=== PATIENT | female | born 1960 | race Caucasian/White ===

== ENCOUNTER 2020-10-01 10:53 | Outpatient (CLI) | payer SELFPAY ==
[~2020-10-01] VITALS: Ht 154.9 cm; Wt 61.2 kg
[2020-10-01 10:46] VITALS: BP 181/77
[2020-10-01] MEDS ORDERED: EPINEPHrine INJECTION 1 MG/ML AMP IM PRN (11:15)
[2020-10-01] MEDS ORDERED: ACETAMINOPHEN 500 MG TAB (TYLENOL) PO PRN (11:15)
[2020-10-01] MEDS ORDERED: CASIRIVIMAB/IMDEVIMAB 1,200 MG in NS (IVPB) 250 ML IV ONE (11:15)
[2020-10-01] MEDS ORDERED: ONDANSETRON 4 MG/2 ML (SDV) Z0FRAN IV PRN (11:15)
[2020-10-01] MEDS ORDERED: diphenhydrAMINE 50 MG/ML INJ (BENADRYL) IV PRN (11:15)
[2020-10-01 12:27] VITALS: BP 166/67
== END 2020-10-01 12:27 | disposition home or self-care (01) ==
LOC: INFUSION 10:53
PROVIDERS: ATTEND Nurse Practitioner Family
DX: Z23 Encounter for immunization (principal); U07.1 COVID-19

== ENCOUNTER 2022-10-25 20:42 | Observation (INO) | payer OTHER ==
[~2022-10-25] VITALS: Ht 152.4 cm; Wt 56.7 kg
[2022-10-26] VITALS (8 sets, daily range): BP systolic 121–151; BP diastolic 69–83
[2022-10-26] MEDS ORDERED: ONDANSETRON 4 MG ORAL DISSOLVE TABLET PO PRN (00:15)
[2022-10-26] MEDS ORDERED: diphenhydrAMINE 25 MG TABLET PO PRN (00:15)
[2022-10-26] MEDS ORDERED: BISACODYL 10 MG SUPPOSITORY PR PRN (00:15)
[2022-10-26] MEDS ORDERED: cloNIDine 0.1 MG TABLET PO PRN (00:15)
[2022-10-26] MEDS ORDERED: diphenhydrAMINE INJ 50 MG/ML VIAL IVP PRN (00:15)
[2022-10-26] MEDS ORDERED: CALCIUM CARBONATE 500 MG CHEW TABLET PO PRN (00:15)
[2022-10-26] MEDS ORDERED: ACETAMINOPHEN 325 MG TABLET PO PRN (00:15)
[2022-10-26] MEDS ORDERED: ALPRAZolam 1 MG TABLET PO PRN (00:15)
[2022-10-26] MEDS ORDERED: ANTACID SUSPENSION 30 ML UDC PO PRN (00:15)
[2022-10-26] MEDS ORDERED: morphine INJ 4 MG/ML 1 ML (VIAL/SYRINGE) IV PRN (00:15)
[2022-10-26] MEDS ORDERED: MILK OF MAGNESIA 400 MG/5 ML 30 ML UDC PO PRN (00:15)
[2022-10-26] MEDS ORDERED: LACTULOSE SYRUP 10GM/15ML 30ML UDC PO PRN (00:15)
[2022-10-26] MEDS ORDERED: MELATONIN 3 MG TABLET PO PRN (00:15)
[2022-10-26] MEDS ORDERED: ONDANSETRON INJECTION 4 MG/2 ML (SDV) IV PRN (00:15)
[2022-10-26] MEDS: oxyCODONE IMMEDIATE RELEASE 5 MG TABLET PO PRN ×2 (00:37→15:17)
[2022-10-26] MEDS ORDERED: RT-Ipratropium/Albuterol NEB 3 ML VIAL INH PRN (02:15)
[2022-10-26] MEDS: NICOTINE 21 MG PATCH TD SCH (09:09)
[2022-10-26] MEDS: ENOXAPARIN 40 MG/0.4 ML SYRINGE SC SCH (09:09)
[2022-10-26] MEDS: ASPIRIN 81 MG CHEWABLE TABLET PO SCH (09:09)
[2022-10-26] MEDS: FUROSEMIDE INJECTION 40 MG/4 ML VIAL IV SCH ×2 (09:10→15:17)
[2022-10-26] MEDS: SENNOSIDES 8.6 MG TABLET PO SCH ×2 (09:10→21:00)
[2022-10-26] MEDS: DOCUSATE SODIUM 100 MG CAPSULE PO SCH ×2 (09:10→21:00)
[2022-10-26 10:43] LABS: BASOPHILS # (AUTO) 0.1 10^3/uL (0.0-0.1); BASOPHILS % (AUTO) 2 % (0-10); EOSINOPHILS # (AUTO) 0.4 10^3/uL (0.0-0.3); EOSINOPHILS % (AUTO) 6 % (0-10); HEMATOCRIT 43 % (35-52); HEMOGLOBIN 13.8 g/dL (11.5-16.0); LYMPHOCYTES # (AUTO) 2.4 10^3/uL (1.0-4.0); LYMPHOCYTES % (AUTO) 33 % (12-44); MEAN CORPUSCULAR HEMOGLOBIN 29 pg (25-34); MEAN CORPUSCULAR HGB CONC 33 g/dL (32-36); MEAN CORPUSCULAR VOLUME 88 fL (80-99); MEAN PLATELET VOLUME 11.8 fL (9.0-12.2); MONOCYTES # (AUTO) 0.4 10^3/uL (0.0-1.0); MONOCYTES % (AUTO) 5 % (0-12); NEUTROPHILS % (AUTO) 55 % (42-75); PLATELET COUNT 284 10^3/uL (130-400); WHITE BLOOD COUNT 7.3 10^3/uL (4.3-11.0)
[2022-10-26 10:57] LABS: ALBUMIN 4.1 GM/DL (3.2-4.5); BILIRUBIN,TOTAL 0.7 MG/DL (0.1-1.0); CALCIUM 9.7 MG/DL (8.5-10.1); CREATININE SERUM 1.14 MG/DL (0.60-1.30); POTASSIUM 3.6 MMOL/L (3.6-5.0); TOTAL PROTEIN 7.7 GM/DL (6.4-8.2)
--- NOTE | 2022-10-26 11:05 | Consultation-Cardiology ---
HPI-Cardiology Cardiology Consultation Date of Consultation 10/26/22 Date of Admission Time Seen by Provider: 10:00 HPI Patient is a 62-year-old female with a history of tobacco abuse who presents for evaluation of shortness of breath. Patient states that approximately 3 weeks ago she began to experience shortness of breath and chest discomfort. She describes her chest discomfort as a "elephant sitting on her chest." She noted that she had the symptoms for about 2 to 3 days. They were associated with nausea and vomiting. Nonbloody nonbilious, no hematemesis she tolerated the symptoms and then decided to go in on October 13 for evaluation. At that point time she was found to have a weakly positive troponin at 0.33. She was seen at [facility] and subsequently discharged. She was discharged and noted that her chest pain resolved but she continued to experience progressively worsening shortness of breath. She comments that she then developed PND type symptoms. She could not sleep flat and had to prop herself up on pillows or sleep on an incline to be able to get rest. She noted that her symptoms got progressively worse and she went back into [facility] for evaluation. Troponin was found to be negative BNP was elevated at 1000 D-dimer was elevated at 1.16. She was given Lasix 40 IV x1 and aspirin 81x1. She underwent chest CTA which was negative for PE but demonstrated mild mediastinal/hilar adenopathy. Personal read of her EKG at [facility] demonstrates normal sinus rhythm with a heart rate of 98 bpm, delayed R wave progression across the precordium, questionable anterior NV, LVH with repolarization abnormalities and a prolonged QT (QTc 496 ms). She was then transferred to our facility for further care. She now reports that her shortness of breath symptoms have improved. She still has to prop herself up but does not feel as dyspneic as she has in the past. Home Medications & Allergies Allergies: Coded Allergies: No Known Drug Allergies (Unverified , 10/01/20) HLE-Zhqkge-Erwxvx Hx Patient Social History Smoking Status: Current Everyday Smoker (1 pack/day for approximately 44 years, current) Cigaretts per day: 1 Alcohol Use?: No Substance type: Caffeine (tEtOH: Denies Illicit: Denies Caffeine: 6 cups/day, 16 ounces per cup and 3 sodas per day) Family Medical History Family Medical Hx Father with fatal NV in his 70s Mother with fatal NV in her 70s Review of Systems-General Review of Systems Constitutional: other (See HPI) All systems were reviewed and are negative except for what is been described in HPI Reviewed Test Results Reviewed Test Results Lab Labs from outside hospital, [facility] White blood cell count of 6.4, hemoglobin 12.4, hematocrit 40.1, platelets of 276, BMP: Sodium 140, potassium 4.2, chloride 109, bicarb 21, BUN 19, creatinine 0.8, LFTs: AST 40, ALT elevated at 62, T. bili 0.4 Troponin I negative BMP 1000 D-dimer 1.16 ECG Impression ECG Comment Personal read of EKG from [facility] demonstrates normal sinus rhythm with a heart rate of 90 bpm, delayed R wave progression across precordium, consider anterior infarction, LVH with repolarization abnormalities, prolonged QTc, 496 ms Physical Exam Physical Exam Vital Signs Vital Signs - First Documented 10/25/22 10/26/22 10/26/22 23:43 00:00 02:02 Pulse 90 Resp 27 B/P (MAP) 141/83 (102) Pulse Ox 97 O2 Delivery Room Air FiO2 21 Capillary Refill : Height, Weight, BMI Height: '" Weight: lbs. oz. kg; 25.23 BMI Method: General Appearance: No Apparent Distress Comments Gen: NAD, resting comfortably Neck: No bruits, JVD approximately 12 cm Lungs: CTA B; no w-r-r CV: nl s1/s2; no g-r; no murmurs noted Abd: + BS, soft NT,ND no hepatosplenomegaly Ext: 2+ radial and DP pulses; no c-c-e, wwp A/P-Cardiology Assessment/Plan 62-year-old female with a history of tobacco abuse who presents for evaluation of shortness of breath. ##Shortness of breath: BNP elevated at 1000. Received Lasix 40 IV x1. Also received Lasix 40 again this morning. Patient reports shortness of breath quite improved. We will obtain an echocardiogram to assess overall cardiac structure and function. We will optimize her medical regimen pending echo results. Further recommendations to be advanced pending echocardiogram results. ##Chest discomfort: Last chest discomfort was approximately 10-12 days ago. Given the history, I am concerned the patient may have had an NV approximately 2 to 3 weeks prior. We will follow-up on echocardiogram. Check fasting lipid panel and A1c. ## Tobacco: current smoker, long discussion. recommend smoking cessation, pt states she is now down to 0.25ppd from 1.0 packs/day. JOHN DENIS MD Oct 26, 2022 11:05
--- NOTE | 2022-10-26 11:37 | History & Physical ---
NATEMAYKEL 10/26/22 1137: History of Present Illness History of Present Illness Reason for visit/HPI Patient is a 65-year-old female who was admitted from [facility] on 10/25 with chief complaint of chest discomfort. She states that for about 2-3 weeks she had been having a feeling of constant pressure in her chest that has worsened over the past weeks. She has also been having increasing SOB during this time, worse when laying flat, has been propping herself up at night. She has not seen a physician in many years, current PPD smoker, thinks for at least 30 years. She was seen initially at [facility] on 10/13, troponin slightly elevated at 0.33, she was discharged home. When seen at [facility] yesterday, troponin was negative, still having worsening chest discomfort and SOB, she was started on ASA and lasix, admitted to [facility]. Today she reports that she is feeling much better. Still having some mild chest discomfort and SOB, but she reports has greatly improved since receiving lasix. [facility] is faxing over their records today. Patient has no new complaints. Date of Admission Oct 25, 2022 at 23:26 Date Seen by a Provider: Oct 26, 2022 Time Seen by a Provider: 10:30 I consulted on this patient on 10/26/22 11:32 Attending Physician Admitting Physician Admitting Physician: Samia Titus DO Attending Physician: Samia Titus DO Consult Allergies and Home Medications Allergies Coded Allergies: No Known Drug Allergies (Unverified , 10/01/20) Past Wvlfoko-Fffmej-Yksbwt Hx Patient Social History Tobacco Use?: Yes Tobacco type used: Cigarettes Smoking Status: Current Everyday Smoker (1 pack/day for approximately 44 years, current) Approx how many per day: 1 Substance use?: No Substance type: Caffeine (tEtOH: Denies Illicit: Denies Caffeine: 6 cups/day, 16 ounces per cup and 3 sodas per day) Alcohol Use?: No Pt feels they are or have been: No Immunizations Up To Date Tetanus Booster (TDap): Unknown Hepatitis A: No Hepatitis B: No Current Status status: No status: No Advance Directives: No Communicates: Verbally Primary Language: Setswana Preferred Spoken Language: Setswana Is interpretation needed?: No Implanted or Applied Medical D: None Review of Systems Constitutional: No chills, No fever EENTM: No hearing loss, No blurred vision Respiratory: dyspnea on exertion (improved), short of breath (improved, still propping up to sleep) Cardiovascular: chest pain Gastrointestinal: No nausea, No vomiting Genitourinary: No dysuria, No hematuria Musculoskeletal: No back pain, No neck pain Skin: No change in color, No change in hair/nails Psychiatric/Neurological: Denies Numbness, Denies Weakness Physical Exam Vital Signs Vital Signs - First Documented 10/25/22 10/26/22 10/26/22 23:43 00:00 02:02 Pulse 90 Resp 27 B/P (MAP) 141/83 (102) Pulse Ox 97 O2 Delivery Room Air FiO2 21 Capillary Refill : Height, Weight, BMI Height: '" Weight: lbs. oz. kg; 25.23 BMI Method: General Appearance: No Apparent Distress, WD/WN HEENT: PERRL/EOMI Neck: Non Tender, Supple Respiratory: Chest Non Tender, Normal Breath Sounds, No Accessory Muscle Use Cardiovascular: Regular Rate, Rhythm, Normal Peripheral Pulses Gastrointestinal: Non Tender, Soft Rectal: Deferred Back: No Vertebral Tenderness Extremity: Normal Capillary Refill, Non Tender Neurologic/Psychiatric: Alert, Oriented x3 Assessment/Plan Assessment and Plan New onset CHF: Cardiology consulted, appreciate recs, continue lasix 40mg BID, will obtain echo, measure I's and O's, good UOP so far. Currently on telemetry. Angina: improved since admission, cardiology consulted, monitoring telemetry, continue ASA, obtaining EKG today SOB: improved, supplemental O2 and nebs if needed Current smoker: nicotine patch Lovenox for DVT prophylaxis Admission Diagnosis New onset CHF SAMIA TITUS DO 10/27/22 0454: History of Present Illness History of Present Illness Reason for visit/HPI Chief complaint: New onset CHF HPI: This is a 62-year-old female who presented from [facility] due to shortness of breath and new onset congestive heart failure. Echocardiogram ordered and cardiology consulted. Currently she is doing a lot better and Lasix has helped a lot. Allergies and Home Medications Allergies Coded Allergies: No Known Drug Allergies (Unverified , 10/01/20) Patient Home Medication List Home Medication List Reviewed: Yes Past Gkgcxes-Jcdwec-Cyiabd Hx Patient Social History Marrital Status: single Employed/Student: employed Smoking Status: Current Everyday Smoker Review of Systems Constitutional: see HPI Respiratory: dyspnea on exertion (improved), short of breath (improved, still propping up to sleep) Cardiovascular: chest pain, palpitations Physical Exam General Appearance: WD/WN, Anxious, Chronically ill, Mild Distress Eyes: Bilateral Eye Normal Inspection, Bilateral Eye PERRL, Bilateral Eye EOMI HEENT: PERRL/EOMI, Normal ENT Inspection, Pharynx Normal Neck: Full Range of Motion, Normal Inspection, Non Tender, Supple, Carotid Bruit Respiratory: Chest Non Tender, Lungs Clear, Normal Breath Sounds, No Accessory Muscle Use, No Respiratory Distress Cardiovascular: Regular Rate, Rhythm, No Edema, No Gallop, No JVD, No Murmur, Normal Peripheral Pulses Gastrointestinal: Normal Bowel Sounds, No Organomegaly, No Pulsatile Mass, Non Tender, Soft Back: Normal Inspection, No CVA Tenderness, No Vertebral Tenderness Extremity: Normal Capillary Refill, Normal Inspection, Normal Range of Motion, Non Tender, No Calf Tenderness, No Pedal Edema Neurologic/Psychiatric: Alert, Oriented x3, No Motor/Sensory Deficits, Normal Mood/Affect Skin: Normal Color, Warm/Dry Lymphatic: No Adenopathy Assessment/Plan Assessment and Plan Assessment: New onset CHF Elevated troponin likely type II PR Current smoker Plan: Lasix Echo Cardiology consult appreciated Admission Diagnosis Admission Status: Observation Supervisory-Addendum Brief Verification & Attestation Participated in pt care: history, MDM, physical Personally performed: exam, history, MDM, supervision of care Care discussed with: Medical Student Procedures: n/a Results interpretation: Verified all documentation Verification and Attestation of Medical Student E/M Service A medical student performed and documented this service in my presence. I reviewed and verified all information documented by the medical student and made modifications to such information, when appropriate. I personally performed the physical exam and medical decision making. Samia Titus Oct 27, 2022,04:54 MAYKEL SULLIVAN Oct 26, 2022 11:37 SAMIA TITUS DO Oct 27, 2022 04:54
[2022-10-27 03:46] VITALS: BP 127/74
[2022-10-27 05:27] LABS: BASOPHILS # (AUTO) 0.1 10^3/uL (0.0-0.1); BASOPHILS % (AUTO) 2 % (0-10); EOSINOPHILS # (AUTO) 0.4 10^3/uL (0.0-0.3); EOSINOPHILS % (AUTO) 5 % (0-10); HEMATOCRIT 43 % (35-52); HEMOGLOBIN 13.9 g/dL (11.5-16.0); LYMPHOCYTES # (AUTO) 3.1 10^3/uL (1.0-4.0); LYMPHOCYTES % (AUTO) 39 % (12-44); MEAN CORPUSCULAR HEMOGLOBIN 28 pg (25-34); MEAN CORPUSCULAR HGB CONC 32 g/dL (32-36); MEAN CORPUSCULAR VOLUME 86 fL (80-99); MONOCYTES # (AUTO) 0.5 10^3/uL (0.0-1.0); MONOCYTES % (AUTO) 6 % (0-12); NEUTROPHILS # (AUTO) 3.7 10^3/uL (1.8-7.8); NEUTROPHILS % (AUTO) 47 % (42-75); PLATELET COUNT 290 10^3/uL (130-400); WHITE BLOOD COUNT 7.9 10^3/uL (4.3-11.0)
[2022-10-27 06:01] LABS: ALBUMIN 3.9 GM/DL (3.2-4.5); BILIRUBIN,TOTAL 0.4 MG/DL (0.1-1.0); CALCIUM 9.5 MG/DL (8.5-10.1); CREATININE SERUM 1.09 MG/DL (0.60-1.30); TOTAL PROTEIN 7.3 GM/DL (6.4-8.2)
[2022-10-27 08:00] VITALS: BP 135/85
[2022-10-27] MEDS ORDERED: LIDOCAINE 1% INJ 20 ML VIAL ONE (08:01)
[2022-10-27] MEDS ORDERED: HEParin (CATH LAB) 2,000 ML IV ONE (08:01)
[2022-10-27] MEDS ORDERED: NS IV 1000 ML 1,000 ML ONE (08:01)
[2022-10-27] MEDS: SENNOSIDES 8.6 MG TABLET PO SCH (08:24)
[2022-10-27] MEDS: DOCUSATE SODIUM 100 MG CAPSULE PO SCH (08:24)
[2022-10-27] MEDS: ENOXAPARIN 40 MG/0.4 ML SYRINGE SC SCH (08:24)
[2022-10-27] MEDS: FUROSEMIDE INJECTION 40 MG/4 ML VIAL IV SCH (08:24)
[2022-10-27] MEDS: ASPIRIN 81 MG CHEWABLE TABLET PO SCH (08:24)
[2022-10-27] MEDS: NICOTINE 21 MG PATCH TD SCH (08:25)
[2022-10-27 11:47] VITALS: BP 116/66
--- NOTE | 2022-10-27 11:56 | Progress Note ---
MAYKEL SULLIVAN 10/27/22 1156: Subjective Date Seen by a Provider: Oct 27, 2022 Time Seen by a Provider: 10:30 Subjective/Events-last exam Patient seen sitting up in bed, no family at bedside. She reports that her SOB has continued to improve, not having any chest pain or discomfort. Troponin was elevated yesterday at 0.033. EKG showed a possible anterior SC, indeterminate age. Echo showed EF of 35-40 %, hypokinesis of anterior and septal myocardium, moderate aortic regurge. She is undergoing cardiac catheterization this afternoon. Patient has no new complaints. Review of Systems General: No Chills, No Night Sweats HEENT: No Head Aches, No Visual Changes Pulmonary: No Dyspnea (Denies today), No Cough Cardiovascular: No: Chest Pain, Palpitations Gastrointestinal: No: Nausea, Vomiting Genitourinary: No Dysuria, No Hematuria Musculoskeletal: No: neck pain, back pain Neurological: No: Weakness, Numbness Objective Exam Last Set of Vital Signs Vital Signs Date Time Temp Pulse Resp B/P (MAP) Pulse Ox O2 Delivery O2 Flow Rate FiO2 10/27/22 11:47 36.2 99 18 116/66 (83) 94 Room Air 10/27/22 10:51 0.00 10/26/22 02:02 21 Capillary Refill : I&O Intake and Output 10/27/22 00:00 Intake Total 900 ml Output Total 500 ml Balance 400 ml Intake Oral 900 ml Output Urine Total 500 ml # Voids 8 General: Alert, Oriented X3 HEENT: Atraumatic, PERRLA Neck: Supple, No JVD Lungs: Clear to Auscultation Heart: Regular Rate, No Murmurs Abdomen: Normal Bowel Sounds, Soft Extremities: No Clubbing, No Edema, Normal Pulses Skin: No Rashes, No Breakdown Neuro: Normal Speech, Sensation Intact Psych/Mental Status: Mental Status NL, Mood NL Results Lab Laboratory Tests 10/27/22 05:15: White Blood Count 7.9, Red Blood Count 5.01, Hemoglobin 13.9, Hematocrit 43, Me an Corpuscular Volume 86, Mean Corpuscular Hemoglobin 28, Mean Corpuscular Hemoglobin Concent 32, Red Cell Distribution Width 15.0H, Platelet Count 290, Mean Platelet Volume 11.0, Immature Granulocyte % (Auto) 0, Neutrophils (%) (Auto) 47, Lymphocytes (%) (Auto) 39, Monocytes (%) (Auto) 6, Eosinophils (%) (Auto) 5, Basophils (%) (Auto) 2, Neutrophils # (Auto) 3.7, Lymphocytes # (Auto) 3.1, Monocytes # (Auto) 0.5, Eosinophils # (Auto) 0.4H, Basophils # (Auto) 0.1, Immature Granulocyte # (Auto) 0.0, Sodium Level 135, Potassium Level 4.0, Chloride Level 99, Carbon Dioxide Level 24, Anion Gap 12, Blood Urea Nitrogen 33H, Creatinine 1.09, Estimat Glomerular Filtration Rate 57, BUN/Creatinine Ratio 30, Glucose Level 119H, Calcium Level 9.5, Corrected Calcium 9.6, Total Bilirubin 0.4, Aspartate Amino Transf (AST/SGOT) 30, Alanine Aminotransferase (ALT/SGPT) 54, Alkaline Phosphatase 102, B-Type Natriuretic Peptide 611.2H, Total Protein 7.3, Albumin 3.9, Triglycerides Level 96, Cholesterol Level 188, LDL Cholesterol Direct 133H, VLDL Cholesterol 19, HDL Cholesterol 48 Assessment/Plan Assessment/Plan Assess & Plan/Chief Complaint New onset CHF: cardiology consulted, appreciate recs, continue lasix, responding well, good UOP. Echo showed reduced EF 35-40%. Elevated troponin: Likely type 2 SC, cardiology consulted, continue ASA, catheterization today SOB: improved, denies any SOB currently, supplemental O2 and nebs if needed Current smoker: nicotine patch Lovenox DVT prophylaxis Clinical Quality Measures Admission Status Admission Dx New onset CHF LEDEZMABREANNA WOODRUFFEfra DURHAM 10/27/220: Subjective Subjective/Events-last exam Doing well O2 maintained prn Cath today Objective Exam General: Alert, Oriented X3, Cooperative, No Acute Distress Lungs: Clear to Auscultation, Normal Air Movement Heart: Regular Rate, Normal S1, Normal S2, No Murmurs Psych/Mental Status: Mental Status NL, Mood NL Assessment/Plan Assessment/Plan Assess & Plan/Chief Complaint Cath today Supervisory-Addendum Brief Verification & Attestation Participated in pt care: history, MDM, physical Personally performed: exam, history, MDM, supervision of care Care discussed with: Medical Student Procedures: n/a Results interpretation: Verified all documentation Verification and Attestation of Medical Student E/M Service A medical student performed and documented this service in my presence. I reviewed and verified all information documented by the medical student and made modifications to such information, when appropriate. I personally performed the physical exam and medical decision making. Samia Ledezma, Oct 27, 2022,22:19 MAYKEL SULLIVAN Oct 27, 2022 11:56 SAMIA LEDEZMA DO Oct 27, 2022 22:20
[2022-10-27] MEDS ORDERED: fentaNYL INJECTION 100 MCG/2 ML VIAL ONE (12:36)
[2022-10-27] MEDS ORDERED: MIDAZOLAM INJ 5 MG/5 ML VIAL ONE (12:36)
[2022-10-27] MEDS ORDERED: VERAPAMIL 5 MG/2 ML (CALAN) VIAL IV ONE (12:36)
[2022-10-27] MEDS ORDERED: NITRO DRIP 25000 MCG/D5W 250 ML IV ONE (12:37)
[2022-10-27] MEDS ORDERED: HEParin 1000 UNIT/ML (10ML VIAL) FOR BOLUS ONE (12:37)
[2022-10-27] MEDS ORDERED: EMPAGLIFLOZIN 10 MG TABLET PO SCH (14:00)
--- NOTE | 2022-10-27 14:01 | Cardiology Progress Note ---
Subjective Date Seen by Provider: Oct 27, 2022 Time Seen by Provider: 09:15 Subjective/Events-last exam Patient continues to experience chest discomfort. Troponin elevated. Echo cardiogram performed demonstrating EF of 35% with anterior and apical hypokinesis, concerning for LAD territory disease. Plan to take to [facility] today. Exam Vital Signs Vital Signs Date Time Temp Pulse Resp B/P (MAP) Pulse Ox O2 Delivery O2 Flow Rate FiO2 10/27/22 13:00 96 10/27/22 11:47 36.2 18 116/66 (83) 94 Room Air 10/27/22 10:51 0.00 10/26/22 02:02 21 Physical Exam Gen: NAD, resting comfortably Neck: No bruits, JVD approximately 12 cm Lungs: CTA B; no w-r-r CV: nl s1/s2; no g-r; no murmurs noted Abd: + BS, soft NT,ND no hepatosplenomegaly Ext: 2+ radial and DP pulses; no c-c-e, wwp Labs Laboratory Tests Test 10/27/22 05:15 Range/Units White Blood Count 7.9 4.3-11.0 10^3/uL Red Blood Count 5.01 3.80-5.11 10^6/uL Hemoglobin 13.9 11.5-16.0 g/dL Hematocrit 43 35-52 % Mean Corpuscular Volume 86 80-99 fL Mean Corpuscular Hemoglobin 28 25-34 pg Mean Corpuscular Hemoglobin Concent 32 32-36 g/dL Red Cell Distribution Width 15.0 H 10.0-14.5 % Platelet Count 290 130-400 10^3/uL Mean Platelet Volume 11.0 9.0-12.2 fL Immature Granulocyte % (Auto) 0 % Neutrophils (%) (Auto) 47 42-75 % Lymphocytes (%) (Auto) 39 12-44 % Monocytes (%) (Auto) 6 0-12 % Eosinophils (%) (Auto) 5 0-10 % Basophils (%) (Auto) 2 0-10 % Neutrophils # (Auto) 3.7 1.8-7.8 10^3/uL Lymphocytes # (Auto) 3.1 1.0-4.0 10^3/uL Monocytes # (Auto) 0.5 0.0-1.0 10^3/uL Eosinophils # (Auto) 0.4 H 0.0-0.3 10^3/uL Basophils # (Auto) 0.1 0.0-0.1 10^3/uL Immature Granulocyte # (Auto) 0.0 0.0-0.1 10^3/uL Sodium Level 135 135-145 MMOL/L Potassium Level 4.0 3.6-5.0 MMOL/L Chloride Level 99 98-107 MMOL/L Carbon Dioxide Level 24 21-32 MMOL/L Anion Gap 12 5-14 MMOL/L Blood Urea Nitrogen 33 H 7-18 MG/DL Creatinine 1.09 0.60-1.30 MG/DL Estimat Glomerular Filtration Rate 57 BUN/Creatinine Ratio 30 Glucose Level 119 H 70-105 MG/DL Calcium Level 9.5 8.5-10.1 MG/DL Corrected Calcium 9.6 8.5-10.1 MG/DL Total Bilirubin 0.4 0.1-1.0 MG/DL Aspartate Amino Transf (AST/SGOT) 30 5-34 U/L Alanine Aminotransferase (ALT/SGPT) 54 0-55 U/L Alkaline Phosphatase 102 40-136 U/L B-Type Natriuretic Peptide 611.2 H <100.0 PG/ML Total Protein 7.3 6.4-8.2 GM/DL Albumin 3.9 3.2-4.5 GM/DL Triglycerides Level 96 <150 MG/DL Cholesterol Level 188 < 200 MG/DL LDL Cholesterol Direct 133 H 1-129 MG/DL VLDL Cholesterol 19 5-40 MG/DL HDL Cholesterol 48 40-60 MG/DL A/P-Cardiology Assessment/Plan 62-year-old female with a history of tobacco abuse who presents for evaluation of shortness of breath and now resolved chest pain, found to have mildly elevated troponin and depressed EF with regional WMAs. ##Shortness of breath: BNP elevated at 1000. Received Lasix 40 IV x1. Also received Lasix 40 again this morning. Echocardiogram demonstrates EF of 35% with anterior wall hypokinesis. BNP down to 611 on follow-up check. BUN up to 33. We will hold Lasix for now. For cardiac cath today. Further recommendations to be advanced thereafter ##Chest discomfort: Last chest discomfort was approximately 10-12 days ago. Given the history, I am concerned the patient may have had an AZ approximately 2 to 3 weeks prior. LDL 133, HDL 48, total cholesterol 188, triglycerides 96. Start statin. Follow-up A1c. ## Tobacco: current smoker, long discussion. recommend smoking cessation, pt states she is now down to 0.25ppd from 1.0 packs/day. ##NSTEMI: Continue aspirin. Start statin. Hold on Lasix given rising BUN. Start beta-blockade and valsartan. Initiate Jardiance 10 mg p.o. daily as well JOHN DENIS MD Oct 27, 2022 14:01
--- NOTE | 2022-10-27 14:11 | Cardiac Cath Report ---
CARDIAC CATHETERIZATION DATE OF PROCEDURE: October 27, 2022 INDICATION: Chest pain/shortness of breath/NSTEMI HISTORY: 62-year-old female with history of tobacco abuse presents with shortness of breath and chest discomfort. Chest discomfort resolved approximately 10 to 12 days prior when shortness of breath has gotten progressively worse. Opponent 0.033. Presentation consistent with NSTEMI. Echocardiogram demonstrates depressed EF of 35% with anterior wall hypokinesis. Now referred for cardiac catheterization. PROCEDURES PERFORMED: 1. Artery access 2. Selective coronary angiography. 3. Attempted wiring of the LAD across what appeared to be a calcified subtotally occluded lesion in the mid LAD. 4. Radial band closure. PROCEDURE DESCRIPTION and intervention: The patient was brought to the Cardiac Catheterization Laboratory in a fasting state. The details of the procedure were discussed with the patient, including risks and benefits. The patient understood and gave informed consent. The patient was prepped and draped in the normal sterile fashion. The right radial wrist was anesthetized with local lidocaine. Using the modified Seldinger technique, a 6 [place] radial sheath was inserted into the right radial artery. Selective coronary angiography was performed in multiple projections using 5 [place] JL 3.5 and JR4 catheters. Left ventricular pressures were sampled using the JR4 catheter. We attempted to probe the mid LAD lesion, which appeared calcified and subtotally occluded. We swapped out for an EBU 3.5 guide. Heparin was administered to achieve an ACT between 2 50-3 50. A [place] wire was advanced to the lesion and we experienced significant buckling suggesting heavy calcification. As a result, we decided to abort the procedure and pursue care for her at a higher level center. At the end the procedure, all catheters were removed. The right radial artery sheath was removed. Good hemostasis was achieved with a radial band. The patient tolerated the procedure well. RESULTS: HEMODYNAMICS: Aorta: 94/67/66 CORONARY ANGIOGRAPHY: Left main coronary artery: The left main coronary artery is a long moderate size artery with minimal luminal irregularities. It gives rise to the LAD and left circumflex territories. Left anterior descending coronary artery: The LAD is a long vessel that reaches the apex. It is moderate in size. There is a subtotally occluded heavily calcified lesion in the proximal to midportion of the LAD near the S1 takeoff. TAY I flow was noted in the LAD. The LAD appears to give rise to a diagonal vessel. There is a long 70% lesion in the proximal portion of the D1 vessel. Left circumflex coronary artery: The left circumflex is a moderate size vessel. There is a 60 to 70% long lesion in the proximal portion of the vessel. The left circumflex gives rise to 1 branching OM vessel. OM1 is a moderate to large sized branching vessel that supplies the inferolateral wall with minimal luminal irregularities. Right coronary artery: The right coronary artery is a moderate size heavily calcified vessel. There is a 40 to 50% calcified lesion in the midsegment of the vessel. The RCA gives rise to an RPDA and 3 RPL vessels. The RPDA is a moderate size vessel with minimal luminal irregularities. RPL 2 is a small sized vessel with minimal luminal irregularities. RPL 1 and 3 are moderate- sized vessels with minimal luminal irregularity. PERCUTANEOUS CORONARY INTERVENTION: As described above. IMPRESSION: 1. 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 Plan: 1. Refer to [facility] for consideration of CABG versus complex PCI. I suspect complex PCI may be preferred in this patient. JOHN DENIS MD Oct 27, 2022 14:11
[2022-10-27 16:00] VITALS: BP 143/92
--- NOTE | 2022-10-27 17:07 | Discharge Summary ---
Diagnosis/Chief Complaint Date of Admission Oct 25, 2022 at 23:26 Date of Discharge Discharge Diagnosis New onset CHF systolic dysfunction type Ischemic cardiomyopathy Multi-vessel disease requiring transfer to [facility] Smoker COPD Reason Hospital Visit Chief complaint: New onset CHF HPI: This is a 62-year-old female who presented from [facility] due to shortness of breath and new onset congestive heart failure. Echocardiogram ordered and cardiology consulted. Currently she is doing a lot better and Lasix has helped a lot. Discharge Summary Discharge Physical Examination Allergies: Coded Allergies: No Known Drug Allergies (Unverified , 10/01/20) Vitals & I&Os Vital Signs Date Time Temp Pulse Resp B/P (MAP) Pulse Ox O2 Delivery O2 Flow Rate FiO2 10/27/22 16:00 36.0 98 12 143/92 (109) 100 Nasal Cannula 2.00 10/26/22 02:02 21 Hospital Course Was the Problem List Reviewed?: Yes Short course after transfer from [facility] for new onset CHF. ECHO revealed EF 35%. Cath revealed multivessel disease so she was moved to [facility] higher level of care. Labs (last 24 hrs) Laboratory Tests 10/26/22 10:34: White Blood Count 7.3, Red Blood Count 4.83, Hemoglobin 13.8, Hematocrit 43, Mean Corpuscular Volume 88, Mean Corpuscular Hemoglobin 29, Mean Corpuscular Hemoglobin Concent 33, Red Cell Distribution Width 14.9H, Platelet Count 284, Mean Platelet Volume 11.8, Immature Granulocyte % (Auto) 0, Neutrophils (%) (Auto) 55, Lymphocytes (%) (Auto) 33, Monocytes (%) (Auto) 5, Eosinophils (%) (Auto) 6, Basophils (%) (Auto) 2, Neutrophils # (Auto) 4.0, Lymphocytes # (Auto) 2.4, Monocytes # (Auto) 0.4, Eosinophils # (Auto) 0.4H, Basophils # (Auto) 0.1, Immature Granulocyte # (Auto) 0.0, Sodium Level 139, Potassium Level 3.6, Chloride Level 100, Carbon Dioxide Level 28, Anion Gap 11, Blood Urea Nitrogen 21H, Creatinine 1.14, Estimat Glomerular Filtration Rate 54, BUN/Creatinine Ratio 18, Glucose Level 78, Calcium Level 9.7, Corrected Calcium 9.6, Total Bilirubin 0.7, Aspartate Amino Transf (AST/SGOT) 43H, Alanine Aminotransferase (ALT/SGPT) 71H, Alkaline Phosphatase 103, Troponin I 0.033H, B-Type Natriuretic Peptide 1018.8H, Total Protein 7.7, Albumin 4.1 10/27/22 05:15: White Blood Count 7.9, Red Blood Count 5.01, Hemoglobin 13.9, Hematocrit 43, Mean Corpuscular Volume 86, Mean Corpuscular Hemoglobin 28, Mean Corpuscular Hemoglobin Concent 32, Red Cell Distribution Width 15.0H, Platelet Count 290, Mean Platelet Volume 11.0, Immature Granulocyte % (Auto) 0, Neutrophils (%) (Auto) 47, Lymphocytes (%) (Auto) 39, Monocytes (%) (Auto) 6, Eosinophils (%) (Auto) 5, Basophils (%) (Auto) 2, Neutrophils # (Auto) 3.7, Lymphocytes # (Auto) 3.1, Monocytes # (Auto) 0.5, Eosinophils # (Auto) 0.4H, Basophils # (Auto) 0.1, Immature Granulocyte # (Auto) 0.0, Sodium Level 135, Potassium Level 4.0, Chloride Level 99, Carbon Dioxide Level 24, Anion Gap 12, Blood Urea Nitrogen 33H, Creatinine 1.09, Estimat Glomerular Filtration Rate 57, BUN/Creatinine Ratio 30, Glucose Level 119H, Calcium Level 9.5, Corrected Calcium 9.6, Total Bilirubin 0.4, Aspartate Amino Transf (AST/SGOT) 30, Alanine Aminotransferase (ALT/SGPT) 54, Alkaline Phosphatase 102, Troponin I < 0.028, B-Type Natriuretic Peptide 611.2H, Total Protein 7.3, Albumin 3.9, Mean Blood Glucose 126, Hemoglobin A1c 6.0H, Triglycerides Level 96, Cholesterol Level 188, LDL Cholesterol Direct 133H, VLDL Cholesterol 19, HDL Cholesterol 48 Pending Labs Laboratory Tests 10/26/22 10:34: White Blood Count 7.3, Red Blood Count 4.83, Hemoglobin 13.8, Hematocrit 43, Mean Corpuscular Volume 88, Mean Corpuscular Hemoglobin 29, Mean Corpuscular Hemoglobin Concent 33, Red Cell Distribution Width 14.9, Platelet Count 284, Mean Platelet Volume 11.8, Immature Granulocyte % (Auto) 0, Neutrophils (%) (Auto) 55, Lymphocytes (%) (Auto) 33, Monocytes (%) (Auto) 5, Eosinophils (%) (Auto) 6, Basophils (%) (Auto) 2, Neutrophils # (Auto) 4.0, Lymphocytes # (Auto) 2.4, Monocytes # (Auto) 0.4, Eosinophils # (Auto) 0.4, Basophils # (Auto) 0.1, I mmature Granulocyte # (Auto) 0.0, Sodium Level 139, Potassium Level 3.6, Chloride Level 100, Carbon Dioxide Level 28, Anion Gap 11, Blood Urea Nitrogen 21, Creatinine 1.14, Estimat Glomerular Filtration Rate 54, BUN/Creatinine Ratio 18, Glucose Level 78, Calcium Level 9.7, Corrected Calcium 9.6, Total Bilirubin 0.7, Aspartate Amino Transf (AST/SGOT) 43, Alanine Aminotransferase (ALT/SGPT) 71, Alkaline Phosphatase 103, Troponin I 0.033, B-Type Natriuretic Peptide 1018.8, Total Protein 7.7, Albumin 4.1 10/27/22 05:15: White Blood Count 7.9, Red Blood Count 5.01, Hemoglobin 13.9, Hematocrit 43, Mean Corpuscular Volume 86, Mean Corpuscular Hemoglobin 28, Mean Corpuscular Hemoglobin Concent 32, Red Cell Distribution Width 15.0, Platelet Count 290, Mean Platelet Volume 11.0, Immature Granulocyte % (Auto) 0, Neutrophils (%) (Auto) 47, Lymphocytes (%) (Auto) 39, Monocytes (%) (Auto) 6, Eosinophils (%) (Auto) 5, Basophils (%) (Auto) 2, Neutrophils # (Auto) 3.7, Lymphocytes # (Auto) 3.1, Monocytes # (Auto) 0.5, Eosinophils # (Auto) 0.4, Basophils # (Auto) 0.1, Immature Granulocyte # (Auto) 0.0, Sodium Level 135, Potassium Level 4.0, Chloride Level 99, Carbon Dioxide Level 24, Anion Gap 12, Blood Urea Nitrogen 33, Creatinine 1.09, Estimat Glomerular Filtration Rate 57, BUN/Creatinine Ratio 30, Glucose Level 119, Calcium Level 9.5, Corrected Calcium 9.6, Total Bilirubin 0.4, Aspartate Amino Transf (AST/SGOT) 30, Alanine Aminotransferase (ALT/SGPT) 54, Alkaline Phosphatase 102, Troponin I < 0.028, B-Type Natriuretic Peptide 611.2, Total Protein 7.3, Albumin 3.9, Mean Blood Glucose 126, Hemoglobin A1c 6.0, Triglycerides Level 96, Cholesterol Level 188, LDL Cholesterol Direct 133, VLDL Cholesterol 19, HDL Cholesterol 48 Discharge Home Medications: Active Scripts Active No Active Prescriptions or Reported Medications Instructions to patient/family Please see electronic discharge instructions given to patient. NATO LEDEZMA DO Oct 27, 2022 17:07
[2022-10-27] MEDS ORDERED: ROSUVASTATIN 20 MG TABLET PO SCH (21:00)
[2022-10-28] MEDS ORDERED: ISOSORBIDE MONONITRATE 30 MG TABLET PO SCH (09:00)
[2022-10-28] MEDS ORDERED: VALSARTAN 80 MG (DIOVAN) TAB PO SCH (09:00)
== END 2022-10-27 19:40 | disposition other institution (70) ==
LOC: UNDOADMOB 23:26 → CSD 23:26 → UNDODISOB 10-27 19:40
PROVIDERS: ADMIT Internal Medicine; ATTEND Internal Medicine
DX: I25.10 Atherosclerotic heart disease of native coronary artery without angina pectoris (principal); I50.21 Acute systolic (congestive) heart failure; I25.5 Ischemic cardiomyopathy; I21.4 Non-ST elevation (NSTEMI) myocardial infarction; J44.9 Chronic obstructive pulmonary disease, unspecified; F17.210 Nicotine dependence, cigarettes, uncomplicated; Z79.82 Long term (current) use of aspirin; Z79.899 Other long term (current) drug therapy; Z28.310 Unvaccinated for COVID-19
CPT/HCPCS: 80053 ×2; 80061; 83036; 83880 ×2; 84484 ×2; 85025 ×2; 93005; 93454; 96372 ×2; 96375; 96376 ×2; C1769; C1887; C1894; C8929; G0378; G0379; 36415; 93306